=== PATIENT | male | born 1980 | race American Indian/Alaskan Native ===

== ENCOUNTER 2019-05-10 14:36 | Emergency (ER) | payer OTHER ==
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
--- NOTE | 2019-05-10 15:54 | XRay Report ---
RIGHT KNEE 3 VIEWS INDICATION / CLINICAL INFORMATION: Right knee pain after fall yesterday. COMPARISON: None available. FINDINGS: BONES and JOINT(S): No acute fracture or subluxation. No significant arthritis. SOFT TISSUES: No significant abnormality. ADDITIONAL FINDINGS: None. IMPRESSION: No significant abnormality of the right knee. Signer Name: Peterson Wolf MD Signed: 05/10/2019 3:50 PM Workstation Name: [id number]
[2019-05-10] MEDS ORDERED: KETOROLAC 60 MG/2 ML INJ IM ONE (19:26)
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
[2019-05-10 20:03] VITALS: BP 117/81
== END 2019-05-10 20:30 | disposition home or self-care (01) ==
LOC: ED 14:36
DX: S86.911A Strain of unspecified muscle(s) and tendon(s) at lower leg level, right leg, initial encounter (principal); F17.200 Nicotine dependence, unspecified, uncomplicated; Z86.711 Personal history of pulmonary embolism; Z79.899 Other long term (current) drug therapy; Z98.890 Other specified postprocedural states; X58.XXXA Exposure to other specified factors, initial encounter; Y93.89 Activity, other specified; Y92.89 Other specified places as the place of occurrence of the external cause; Y99.8 Other external cause status
CPT/HCPCS: 29505; 73562; 96372; 99283; J1885

== ENCOUNTER 2020-04-06 19:26 | Emergency (ER) | payer SELFPAY ==
[2020-04-06 21:14] VITALS: BP 136/97
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
--- NOTE | 2020-04-06 22:16 | XRay Report ---
RIGHT WRIST 3 VIEW(S) INDICATION / CLINICAL INFORMATION: right wrist pain COMPARISON: None available. FINDINGS: BONES / JOINT(S): No acute fracture or subluxation. No significant arthritis. Carpal arcs are intact SOFT TISSUES: Mild soft tissue swelling surrounds the wrist. ADDITIONAL FINDINGS: None. Signer Name: Frandy Aragon MD Signed: 04/06/2020 10:11 PM Workstation Name: [id number]
[2020-04-06] MEDS ORDERED: ACETAMINOPHEN 500 MG TAB PO ONE (22:41)
[2020-04-06] MEDS ORDERED: IBUPROFEN 600 MG TAB PO ONE (22:41)
[2020-04-06] MEDS ORDERED: HYDROcodone/ACETAMINOPHEN 7.5-325MG TAB PO ONE (22:59)
[2020-04-06] MEDS ORDERED: ONDANSETRON 4 MG ODT TAB PO ONE (22:59)
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
== END 2020-04-06 23:50 | disposition home or self-care (01) ==
LOC: ED 19:26
DX: S63.501A Unspecified sprain of right wrist, initial encounter (principal); S86.912A Strain of unspecified muscle(s) and tendon(s) at lower leg level, left leg, initial encounter; F17.200 Nicotine dependence, unspecified, uncomplicated; Z79.899 Other long term (current) drug therapy; X58.XXXA Exposure to other specified factors, initial encounter; Y93.89 Activity, other specified; Y92.89 Other specified places as the place of occurrence of the external cause; Y99.8 Other external cause status
CPT/HCPCS: Q0162

== ENCOUNTER 2020-06-10 18:17 | Emergency (ER) | payer SELFPAY ==
[2020-06-10 18:54] VITALS: BP 136/100
--- NOTE | 2020-06-10 19:35 | XRay Report ---
CHEST 2 VIEWS INDICATION / CLINICAL INFORMATION: chest pain. COMPARISON: Chest 2 views from 11/23/2015. FINDINGS: SUPPORT DEVICES: None. HEART / MEDIASTINUM: No significant abnormality. LUNGS / PLEURA: Clear lungs. No significant pleural effusion. No pneumothorax. ADDITIONAL FINDINGS: No significant additional findings. IMPRESSION: 1. No acute abnormality of the chest. Signer Name: Peterson Wolf MD Signed: 06/10/2020 7:31 PM Workstation Name: [id number]
--- NOTE | 2020-06-10 19:47 | Event Note ---
ED Screening Note Date of service: 06/10/20 Time: 19:45 ED Screening Note: pt is a 39 y/o aam with hx of PE who presents for CP and SOB x 2 days with n/v. Last n/v this am, CP is 4/10 at this time. Symptoms are exacerbated by po intake symptoms are relieved by nothing. This initial assessment/diagnostic orders/clinical plan/treatment(s) is/are subject to change based on patients health status, clinical progression and re- assessment by fellow clinical providers in the ED. Further treatment and workup at subsequent clinical providers discretion. Patient/guardian urged not to elope from the ED as their condition may be serious if not clinically assessed and managed. Initial orders include: EKG, CXR, Trop, CMP, CBC, PT, PTT.
[2020-06-10 20:50] LABS: Hematocrit 41.8 % (35.5-45.6); Hemoglobin 13.3 gm/dl (11.8-15.2); Mean Corpuscular HGB Conc 32 % (32-34); Mean Corpuscular Volume 85 fl (84-94); Platelet Count 175 K/mm3 (140-440); Red Blood Count 4.93 M/mm3 (3.65-5.03); Red Cell Distribution Width 15.3 % (13.2-15.2)
[2020-06-10 21:17] LABS: Alanine Aminotransferase 40 units/L (7-56); Albumin 4.2 g/dL (3.9-5); BUN/Creatinine Ratio 11; Blood Urea Nitrogen 9 mg/dL (9-20); Calcium 8.6 mg/dL (8.4-10.2); Hemolysis Index 6
[2020-06-10 22:08] LABS: INR 0.94 (0.87-1.13)
[2020-06-10 22:14] LABS: Partial Thromboplastin Time 28.5 Sec. (24.2-36.6)
[2020-06-11 00:24] LABS: Total Cells Counted 100
[2020-06-11 00:26] LABS: Large Platelets Rare; Ovalocytes Rare; Platelet Estimate Consistent w Auto
--- NOTE | 2020-06-11 02:42 | Cat Scan Report ---
CTA CHEST WITH IV CONTRAST INDICATION: Pt complains of chest pain, Hx of previous PE's CONTRAST: 100 cc Omnipaque 350 IV COMPARISON: Chest x-ray tonight, CTA chest 11/24/2015 Three-plane MIP reconstructions were produced. All CT scans at this location are performed using CT d ose reduction for ALARA by means of automated exposure control. FINDINGS: No significant axillary or chest wall abnormalities are seen. No mediastinal or hilar dawood s are seen. Prominent fatty infiltration of the liver is noted. No pleural effusions are seen. No obv ious endobronchial lesions are noted. No pneumothorax or pneumomediastinum are seen. Lung portillo show no nodules, masses, or infiltrates. Aorta shows no aneurysmal dilatation or evidence of dissection. Major branches of appear well-opacifi ed without obvious abnormality. Moderate opacification of the pulmonary arterial system was achieved. Mild motion artifact degrades t he smaller arteries, particularly in the lower lobes. I do not see convincing evidence of pulmonary t hromboembolism. IMPRESSION: Negative study Signer Name: Nicolás Parkinson MD Signed: 06/11/2020 2:38 AM Workstation Name: [id number]
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
== END 2020-06-11 03:21 | disposition home or self-care (01) ==
LOC: ED 18:17
DX: R07.89 Other chest pain (principal); R19.7 Diarrhea, unspecified; R05 Cough; Z20.828 Contact with and (suspected) exposure to other viral communicable diseases; F17.200 Nicotine dependence, unspecified, uncomplicated; Z79.899 Other long term (current) drug therapy
CPT/HCPCS: 36415; 71046; 71275; 80053; 84484; 85007; 85025; 85610; 85730; 93005; 99284; Q9967

== ENCOUNTER 2020-09-17 12:28 | Emergency (ER) | payer SELFPAY ==
--- NOTE | 2020-09-17 14:00 | Event Note ---
ED Screening Note Date of service: 09/17/20 Time: 13:59 ED Screening Note: Patient complains of chest pain or shortness of breath x1 week States history of multiple PEs, currently not on anticoagulation Recent long travel to [place] via car States symptoms feel similar to when he had a PE before Heart rate 104 This initial assessment/diagnostic orders/clinical plan/treatment(s) is/are subject to change based on patients health status, clinical progression and re- assessment by fellow clinical providers in the ED. Further treatment and workup at subsequent clinical providers discretion. Patient/guardian urged not to elope from the ED as their condition may be serious if not clinically assessed and managed. Initial orders include: Labs EKG CTA chest
[2020-09-17 15:04] LABS: Basophils # (Auto) 0.1 K/mm3 (0.0-0.1); Basophils % (Auto) 1.6 % (0.0-1.8); Eosinophils # (Auto) 0.1 K/mm3 (0.0-0.4); Eosinophils % (Auto) 1.1 % (0.0-4.3); Hematocrit 40.2 % (35.5-45.6); Lymphocytes # (Auto) 1.6 K/mm3 (1.2-5.4); Lymphocytes % (Auto) 21.5 % (13.4-35.0); Mean Corpuscular HGB Conc 33 % (32-34); Mean Corpuscular Volume 84 fl (84-94); Monocytes # (Auto) 0.6 K/mm3 (0.0-0.8); Monocytes % (Auto) 8.2 % (0.0-7.3); Platelet Count 264 K/mm3 (140-440); Red Blood Count 4.77 M/mm3 (3.65-5.03); Red Cell Distribution Width 13.6 % (13.2-15.2)
[2020-09-17 15:32] LABS: Alanine Aminotransferase 31 units/L (7-56); Albumin 4.3 g/dL (3.9-5); BUN/Creatinine Ratio 11; Blood Urea Nitrogen 9 mg/dL (9-20); Calcium 9.4 mg/dL (8.4-10.2); Hemolysis Index 0
--- NOTE | 2020-09-17 16:38 | Cat Scan Report ---
CTA CHEST WITH CONTRAST INDICATION / CLINICAL INFORMATION: pain, SOB, hx of PE's. TECHNIQUE: Axial CT images were obtained through the chest after injection of 100 MLO Omnipaque 350 I V contrast. 3 plane MIP and/or 3D reconstructions were produced. All CT scans at this location are pe rformed using CT dose reduction for ALARA by means of automated exposure control. COMPARISON: None available. FINDINGS: PULMONARY ARTERIES: No pulmonary emboli. THORACIC AORTA: No significant abnormality. HEART: No significant abnormality. CORONARY ARTERY CALCIFICATION: None. MEDIASTINUM / JASON: No significant abnormality. PLEURA: No pleural effusion. No pneumothorax. LUNGS: No acute air space or interstitial disease. ADDITIONAL FINDINGS: None. UPPER ABDOMEN: No acute findings. SKELETAL STRUCTURES: No significant osseous abnormality. IMPRESSION: 1. No CT evidence for pulmonary embolism. 2. No acute findings. No change since prior study. Signer Name: Levar Anders MD Signed: 09/17/2020 4:33 PM Workstation Name: [id number]
[2020-09-17] MEDS ORDERED: HYDROmorphone 1 MG/1 ML INJ IV ONE (18:49)
[2020-09-17] MEDS ORDERED: methylPREDNISolone Sod Succinate 125 MG/2 ML INJ IV ONE (18:49)
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
[2020-09-17 20:22] VITALS: BP 145/91
--- NOTE | 2020-09-18 10:52 | Electrocardiograph Report ---
[facility] Test Date: 2020-09-17 Test Time: 13:51:42 Pat Name: YVETTE GONZALEZ Department: Room: Gender: M Manager Of Case: PAULETTE : 1980 Requested By: JOSSELIN CARTER Order Number: [id number] Reading MD: Roman Aguirre Measurements Intervals [place] Rate: 100 P: 67 HI: 176 QRS: 47 QRSD: 86 T: 42 QT: 370 QTc: 479 Interpretive Statements Sinus tachycardia Consider left ventricular hypertrophy No previous ECG available for comparison Electronically Signed On 09-18-2020 10:52:06 EDT by Roman Aguirre
== END 2020-09-17 22:00 | disposition home or self-care (01) ==
LOC: ED 12:28
DX: S23.8XXA Sprain of other specified parts of thorax, initial encounter (principal); F17.200 Nicotine dependence, unspecified, uncomplicated; Z79.899 Other long term (current) drug therapy; X58.XXXA Exposure to other specified factors, initial encounter; Y93.89 Activity, other specified; Y92.89 Other specified places as the place of occurrence of the external cause; Y99.8 Other external cause status
CPT/HCPCS: 36415; 71275; 80053; 84484; 85025; 93005; 96374; 96375; 99284; J1170; J2930; Q9967

== ENCOUNTER 2020-09-24 00:17 | Emergency (ER) | payer SELFPAY | END 2020-09-24 01:00 | disposition left against medical advice (07) | LOC: ED 00:17 | DX: Z53.21 Procedure and treatment not carried out due to patient leaving prior to being seen by health care provider (principal) ==